=== PATIENT | female | born 1970 | race Caucasian/White ===

== ENCOUNTER 2019-04-27 06:44 | Outpatient (CLI) | payer BC ==
--- NOTE | 2019-04-27 07:48 | ULT ---
EXAM: Pelvic ultrasound HISTORY: Menorrhagia COMPARISON: None TECHNIQUE: Multiple grayscale and color Doppler images were obtained in a transabdominal and transvag inal pelvic ultrasound. FINDINGS: CERVIX: No evidence of nabothian cysts. UTERUS: Normal in size without focal abnormality. ENDOMETRIAL STRIPE: 6 mm. No free fluid is seen in the pelvis. RIGHT OVARY: A 1.8 cm follicle is seen in the right adnexa. Definite ovarian tissue cannot be seen. LEFT OVARY: Definite ovarian tissue cannot be seen. IMPRESSION: No significant pelvic abnormality
== END 2019-04-27 06:45 | disposition home or self-care (01) ==
LOC: BICULT 06:44
PROVIDERS: ATTEND Family Medicine
DX: N92.0 Excessive and frequent menstruation with regular cycle (principal)
CPT/HCPCS: 76856

== ENCOUNTER 2020-12-27 15:48 | Outpatient (CLI) | payer BC | END 2020-12-27 15:49 | disposition home or self-care (01) | LOC: BICMAMMO 15:48 | PROVIDERS: ATTEND Family Medicine | DX: Z12.31 Encounter for screening mammogram for malignant neoplasm of breast (principal) | CPT/HCPCS: 77063; 77067 ==